=== PATIENT | female | born 1975 | race Caucasian/White ===

== ENCOUNTER 2020-11-17 05:55 | Outpatient (CLI) | payer OTHER ==
[~2020-11-17] VITALS: Ht 160 cm; Wt 98.1 kg
[~2020-11-17 05:55] MED LIST: ACHYD1T PO; IBP600T1; NITR100C3 PO; ONDA4TAB2; OXYC10TA7; PROM12.59; TMSL.4C
== END 2020-11-17 13:53 | disposition home or self-care (01) ==
LOC: PREOP 05:55
PROVIDERS: ATTEND Obstetrics & Gynecology
DX: Z01.818 Encounter for other preprocedural examination (principal)

== ENCOUNTER 2020-11-24 08:48 | Day surgery (SDC) | payer BC, OTHER ==
[2020-11-24] VITALS (11 sets, daily range): BP systolic 89–138; BP diastolic 51–82
[~2020-11-24] VITALS: Ht 160 cm; Wt 98.1 kg
[2020-11-24] MEDS ORDERED: ceFAZolin 2 GM IV Premixed 50 ML IV ONE (09:00)
[2020-11-24] MEDS ORDERED: metroNIDAZOLE 500MG/100ML IVPB 100 ML IV ONE (09:00)
[2020-11-24 09:18] LABS: BILIRUBIN,URINE NEGATIVE (NEGATIVE); CLARITY,URINE CLEAR; COLOR,URINE YELLOW; GLUCOSE, URINE (UA) NEGATIVE (NEGATIVE); KETONES,URINE NEGATIVE (NEGATIVE); LEUKOCYTE ESTERASE ,URINE 1+ (NEGATIVE); NITRITE,URINE NEGATIVE (NEGATIVE); PROTEIN,URINE NEGATIVE (NEGATIVE)
[2020-11-24] MEDS ORDERED: SEVOFLURANE (ULTANE) 15 ML INHAL SOLN ONE ×2 (09:18→13:14)
[2020-11-24] MEDS ORDERED: fentaNYL INJ 100 MCG/2 ML AMP ONE (09:18)
[2020-11-24] MEDS ORDERED: LIDOCAINE PF 2% 5 ML (XYLOCAINE) VIAL ONE (09:18)
[2020-11-24] MEDS ORDERED: ONDANSETRON 4 MG/2 ML (SDV) Z0FRAN ONE (09:18)
[2020-11-24] MEDS ORDERED: proPOfol 200 MG/20 ML (DIPRIVAN) VIAL IV ONE (09:18)
[2020-11-24] MEDS ORDERED: MIDAZOLAM 2 MG/2 ML (VERSED) VIAL ONE (09:19)
[2020-11-24 09:30] LABS: BACTERIA,URINE NEGATIVE /HPF; WBC,URINE 0-2 /HPF
[2020-11-24 09:30] LABS: BASOPHILS # (AUTO) 0.1 10^3/uL (0.0-0.1); BASOPHILS % (AUTO) 1 % (0-10); EOSINOPHILS # (AUTO) 0.1 10^3/uL (0.0-0.3); EOSINOPHILS % (AUTO) 2 % (0-10); HEMATOCRIT 43 % (35-52); HEMOGLOBIN 13.8 g/dL (11.5-16.0); LYMPHOCYTES # (AUTO) 1.2 10^3/uL (1.0-4.0); LYMPHOCYTES % (AUTO) 18 % (12-44); MEAN CORPUSCULAR HEMOGLOBIN 29 pg (25-34); MEAN CORPUSCULAR HGB CONC 32 g/dL (32-36); MEAN CORPUSCULAR VOLUME 91 fL (80-99); MEAN PLATELET VOLUME 9.6 fL (9.0-12.2); MONOCYTES # (AUTO) 0.6 10^3/uL (0.0-1.0); MONOCYTES % (AUTO) 8 % (0-12); NEUTROPHILS # (AUTO) 4.9 10^3/uL (1.8-7.8); NEUTROPHILS % (AUTO) 71 % (42-75); PLATELET COUNT 342 10^3/uL (130-400); WHITE BLOOD COUNT 6.9 10^3/uL (4.3-11.0)
[2020-11-24] MEDS: LACTATED RINGERS 1,000 ML IV PRN ×3 (09:32→15:32)
[2020-11-24] MEDS ORDERED: GLYCOPYRROLATE 0.2 MG/ML (ROBINUL) 2 ML VIAL ONE (11:35)
[2020-11-24] MEDS ORDERED: HYDROmorphone 2 MG/ML VIAL (DILAUDID) ONE (12:16)
[2020-11-24] MEDS ORDERED: KETOROLAC 30 MG/ML VIAL ONE (13:08)
--- NOTE | 2020-11-24 13:19 | Operative Report ---
Operative Report Date of Procedure/Surgery Nov 24, 2020 Surgeon (s) MILTON WATTS DO Director Of Guidance (s): Alice Waters, MS III Post-Operative Diagnosis cystocele rectocele Procedure Performed anterior posterior colporrhaphy Description of Procedure Anesthesia Type: General (via LMA) Estimated blood loss (mL): 150 Specimen(s) collected/removed none Packing: vaginal Findings of the Procedure 3-4+ cystocele 1-2 + low rectocele with enterocele Allergies and Home Medications Allergies Coded Allergies: codeine (Unverified Allergy, Mild, 06/25/13) Sulfa (Sulfonamide Antibiotics) (Unverified Allergy, Unknown, 07/10/13) Patient Home Medication List Home Medication List Reviewed: Yes No Active Prescriptions or Reported Meds MILTON WATTS DO Nov 24, 2020 13:19
[2020-11-24] MEDS ORDERED: NALOXONE 0.4 MG/ML 1 ML (NARCAN) VIAL IV PRN (13:30)
[2020-11-24] MEDS ORDERED: BENZOCAINE/MENTHOL (DERMOPLAST) 56 ML CAN TP PRN (13:30)
[2020-11-24] MEDS ORDERED: ONDANSETRON 4 MG/2 ML (SDV) Z0FRAN IVP PRN (13:30)
[2020-11-24] MEDS ORDERED: HYDROmorphone 2 MG/ML VIAL (DILAUDID) IV ONE (13:30)
[2020-11-24] MEDS ORDERED: morphine INJ 4 MG/ML 1 ML (VIAL/SYRINGE) IV PRN (13:30)
[2020-11-24] MEDS ORDERED: D5 LR IV SOLUTION 1,000 ML IV SCH (13:30)
[2020-11-24] MEDS: ACETAMINOPHEN 500 MG TAB (TYLENOL) PO SCH ×2 (16:34→23:57)
[2020-11-24] MEDS ORDERED: LACTATED RINGERS 1,000 ML IV SCH (18:30)
[2020-11-24] MEDS: KETOROLAC 30 MG/ML VIAL IV SCH (19:53)
[2020-11-24] MEDS: LACTATED RINGERS 1,000 ML IV SCH ×2 (21:25→23:58)
[2020-11-24] MEDS ORDERED: OXC5T PO (22:07)
[2020-11-24] MEDS ORDERED: ACET-93 PO (22:07)
[2020-11-24] MEDS ORDERED: IBUP-844 PO (22:07)
[2020-11-24] MEDS ORDERED: DOCU-143 PO (22:07)
--- NOTE | 2020-11-24 22:09 | Discharge Inst-Women's Service ---
Discharge Inst-Women's Serv Depart Medication/Instructions New, Converted or Re-Newed RX: Transmitted to Pharmacy Instructions keep stool soft no straining no heavy lifting Final Diagnosis rectocele cystocele Problems Reviewed?: Yes Consults/Follow Up Additional Follow Up: Yes (2-4 weeks) Activity Activity: Activity as Tolerated Driving Instructions: No Driving for 1 Week NO SMOKING: NO SMOKING Nothing Inside Vagina: No Douching, No [place], No Tampons Diet Discharge Diet: No Restrictions Symptoms to Report to : Swelling Increased, Bleeding Excessive, Pain Increased, Fever Over 101 Degrees F, Vaginal Bleeding Increase, Vaginal Discharge Foul For Any Problems or Questions: Contact Your Physician Skin/Wound Care Bathing Instructions: Shower (except sitz bath as needed) MILTON WATTS DO Nov 24, 2020 22:09
[2020-11-25] MEDS ORDERED: ZOLPIDEM 5 MG (AMBIEN) TAB ONE (01:24)
[2020-11-25] MEDS: KETOROLAC 30 MG/ML VIAL IV SCH ×2 (01:26→06:29)
[2020-11-25] MEDS ORDERED: ZOLPIDEM 5 MG (AMBIEN) TAB PO PRN (01:30)
[2020-11-25 04:30] VITALS: BP 98/56
[2020-11-25 08:18] VITALS: BP 124/64
--- NOTE | 2020-11-25 08:50 | Anesthesia-General Post-Op ---
General Patient Condition Mental Status/LOC: Same as Preop Cardiovascular: Satisfactory Nausea/Vomiting: Absent Respiratory: Satisfactory Pain: Controlled Complications: Absent Post Op Complications Complications None Follow Up Care/Instructions Patient Instructions None needed. Anesthesia/Patient Condition Patient Condition Patient is doing well, no complaints, stable vital signs, no apparent adverse anesthesia problems. No complications reported per nursing. D/C home per [facility] [place] Criteria: Yes GEORGIANA RHODES CRNA Nov 25, 2020 08:50
[2020-11-25] MEDS ORDERED: DOCUSATE SODIUM 100 MG (COLACE) CAP PO SCH (09:00)
[2020-11-25] MEDS ORDERED: IBUPROFEN 600 MG (MOTRIN) TAB PO SCH (19:00)
== END 2020-11-25 11:10 | disposition home or self-care (01) ==
LOC: SDC 08:48 → WS 14:36 → SDC 11-25 11:10
PROVIDERS: ATTEND Obstetrics & Gynecology
DX: N81.11 Cystocele, midline (principal); N81.6 Rectocele; N81.5 Vaginal enterocele; Z88.2 Allergy status to sulfonamides; Z88.5 Allergy status to narcotic agent; Z11.2 Encounter for screening for other bacterial diseases
CPT/HCPCS: 36415; 81000; 85025; 87081; 94664